=== PATIENT | male | born 1955 ===

== ENCOUNTER 2017-12-17 13:14 | Emergency (ER) | payer OTHER ==
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
[2017-12-17 14:45] VITALS: BP 141/88
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
== END 2017-12-17 14:45 | disposition home or self-care (01) ==
LOC: EDUNIT#
DX: Z04.1 Encounter for examination and observation following transport accident (principal); V47.5XXA Car driver injured in collision with fixed or stationary object in traffic accident, initial encounter; Y92.410 Unspecified street and highway as the place of occurrence of the external cause; Y99.8 Other external cause status; Y93.89 Activity, other specified